=== PATIENT | male | born 1995 | race Caucasian/White ===

== ENCOUNTER 2020-12-19 20:14 | Emergency (ER) | payer SELFPAY ==
[~2020-12-19] VITALS: Ht 157.5 cm; Wt 118.1 kg
[2020-12-19 20:19] VITALS: BP 134/93
[2020-12-19] MEDS ORDERED: DIPH,PERTUSS(ACELL),TET VAC/PF 0.5 ML IM-VACC ONE ×3 (21:00→22:16)
--- NOTE | 2020-12-19 22:01 | NUR ---
[employer]: PT WALKED FROM LOBBY TO ROOM AT THIS TIME. STEADY UPON AMBULATION. NO ACUTE DISTRESS NOTED AT THIS TIME.
[2020-12-19] MEDS ORDERED: L.E.T SOLUTION TP ONE (22:30)
[2020-12-19] MEDS ORDERED: LIDOCAINE-MPF 1%, 5ML ONE (23:02)
[2020-12-19] MEDS ORDERED: NEOSPORIN OINT. PKT 1 PACKET ONE (23:12)
== END 2020-12-19 23:49 | disposition home or self-care (01) ==
LOC: ED 23:43
DX: S61.412A Laceration without foreign body of left hand, initial encounter (principal); W54.0XXA Bitten by dog, initial encounter; Y93.89 Activity, other specified; Y92.009 Unspecified place in unspecified non-institutional (private) residence as the place of occurrence of the external cause; Y99.8 Other external cause status
CPT/HCPCS: 29130; 90471; 90715; 99283; 99284